=== PATIENT | female | born 1970 | race Two or more races ===

== ENCOUNTER 2019-01-07 18:39 | Emergency (ER) | payer SELFPAY ==
[~2019-01-07] VITALS: Ht 157.5 cm; Wt 57.6 kg
[~2019-01-07 18:39] MED LIST: LEVO500T59 PO; METR500T PO
--- NOTE | 2019-01-07 20:52 | PHYS DOC ---
Past Medical History Past Medical History: Hypertension Past Surgical History: Appendectomy Alcohol Use: None Drug Use: None Adult General Chief Complaint Chief Complaint: ABDOMINAL PAIN HPI HPI Patient is a 48 year old female presents with abdominal pain accompanied by nausea is ongoing intermittently for month. The patient is gotten worse last week. The patient denies any vomiting, denies any diarrhea. Denies any vaginal discharge, denies any vaginal bleeding. She was on a fever last Monday, and has been having intermittent chills. Rates her pain as 10/10 and sharp, no medications prior to arrival for pain. Review of Systems Review of Systems Constitutional: Reports fever or chills [] Eyes: Denies change in visual acuity, redness, or eye pain [] HENT: Denies nasal congestion or sore throat [] Respiratory: Denies cough or shortness of breath [] Cardiovascular: No additional information not addressed in HPI [] GI: Reports abdominal pain, nausea, Denies vomiting, bloody stools or diarrhea [] : Denies dysuria or hematuria [] Musculoskeletal: Denies back pain or joint pain [] Integument: Denies rash or skin lesions [] Neurologic: Denies headache, focal weakness or sensory changes [] Endocrine: Denies polyuria or polydipsia [] Complete systems were reviewed and found to be within normal limits, except as documented in this note. Current Medications Current Medications Current Medications Medications (Trade) Dose Ordered Sig/Mounika Start Time Stop Time Status Last Admin Dose Admin Info (CONTRAST GIVEN -- Rx MONITORING) 1 each PRN DAILY PRN 01/07/19 21:15 01/09/19 21:14 Iohexol (Omnipaque 240 Mg/ml) 30 ml 1X ONCE 01/07/19 21:30 01/07/19 21:31 DC 01/07/19 22:25 30 ML Iohexol (Omnipaque 300 Mg/ml) 75 ml 1X ONCE 01/07/19 21:30 01/07/19 21:31 DC 01/07/19 22:25 75 ML Morphine Sulfate (Morphine Sulfate) 4 mg 1X ONCE 01/07/19 21:00 01/07/19 21:01 DC 01/07/19 21:12 4 MG Ondansetron HCl (Zofran) 4 mg 1X ONCE 01/07/19 21:00 01/07/19 21:01 DC 01/07/19 21:12 4 MG Sodium Chloride 1,000 ml @ 1,000 mls/hr 1X ONCE 01/07/19 21:00 01/07/19 21:59 DC 01/07/19 21:12 1,000 MLS/HR Allergies Allergies Allergies Coded Allergies Type Severity Reaction Last Updated Verified No Known Drug Allergies 11/06/15 No Physical Exam Physical Exam Constitutional: Well developed, well nourished, no acute distress, non-toxic appearance. [] HENT: Normocephalic, atraumatic, bilateral external ears normal, oropharynx moist, no oral exudates, nose normal. [] Eyes: PERRLA, EOMI, conjunctiva normal, no discharge. [] Neck: Normal range of motion, no tenderness, supple, no stridor. [] Cardiovascular:Heart rate regular rhythm, no murmur [] Lungs & Thorax: Bilateral breath sounds clear to auscultation [] Abdomen: Bowel sounds normal, soft, periumbilical tenderness, no masses, no pulsatile masses. [] Skin: Warm, dry, no erythema, no rash. [] Back: No tenderness, no CVA tenderness. [] Extremities: No tenderness, no cyanosis, no clubbing, ROM intact, no edema. [] Neurologic: Alert and oriented X 3, normal motor function, normal sensory function, no focal deficits noted. [] Psychologic: Affect normal, judgement normal, mood normal. [] Current Patient Data Vital Signs Vital Signs Date Time Temp Pulse Resp B/P (MAP) Pulse Ox O2 Delivery O2 Flow Rate FiO2 01/07/19 21:21 74 20 145/90 (108) 99 Room Air 01/07/19 19:39 98.1 98.1 Lab Values Laboratory Tests Test 01/07/19 19:40 01/07/19 20:30 Urine Collection Type Void Urine Color Yellow Urine Clarity Clear Urine pH 6.0 Urine Specific [place] 1.025 Urine Protein Negative mg/dL (NEG-TRACE) Urine Glucose (UA) Negative mg/dL (NEG) Urine Ketones (Stick) Negative mg/dL (NEG) Urine Blood Trace (NEG) Urine Nitrite Negative (NEG) Urine Bilirubin Negative (NEG) Urine Urobilinogen Dipstick 0.2 mg/dL (0.2 mg/dL) Urine Leukocyte Esterase Negative (NEG) Urine RBC 1-2 /HPF (0-2) Urine WBC Occ /HPF (0-4) Urine Squamous Epithelial Cells Many /LPF Urine Bacteria Moderate /HPF (0-FEW) Urine Mucus Marked /LPF Urine Test Negative (NEG) White Blood Count 10.2 x10^3/uL (4.0-11.0) Red Blood Count 4.11 x10^6/uL (3.50-5.40) Hemoglobin 13.7 g/dL (12.0-15.5) Hematocrit 39.9 % (36.0-47.0) Mean Corpuscular Volume 97 fL (79-100) Mean Corpuscular Hemoglobin 33 pg (25-35) Mean Corpuscular Hemoglobin Concent 34 g/dL (31-37) Red Cell Distribution Width 13.1 % (11.5-14.5) Platelet Count 267 x10^3/uL (140-400) Neutrophils (%) (Auto) 71 % (31-73) Lymphocytes (%) (Auto) 19 % (24-48) L Monocytes (%) (Auto) 5 % (0-9) Eosinophils (%) (Auto) 5 % (0-3) H Basophils (%) (Auto) 0 % (0-3) Neutrophils # (Auto) 7.2 x10^3/uL (1.8-7.7) Lymphocytes # (Auto) 2.0 x10^3/uL (1.0-4.8) Monocytes # (Auto) 0.5 x10^3/uL (0.0-1.1) Eosinophils # (Auto) 0.5 x10^3/uL (0.0-0.7) Basophils # (Auto) 0.0 x10^3/uL (0.0-0.2) Sodium Level 141 mmol/L (136-145) Potassium Level 3.8 mmol/L (3.5-5.1) Chloride Level 105 mmol/L (98-107) Carbon Dioxide Level 26 mmol/L (21-32) Anion Gap 10 (6-14) Blood Urea Nitrogen 20 mg/dL (7-20) Creatinine 0.9 mg/dL (0.6-1.0) Estimated GFR (Cockcroft-Gault) 67.4 BUN/Creatinine Ratio 22 (6-20) H Glucose Level 103 mg/dL (70-99) H Lactic Acid Level 0.8 mmol/L (0.4-2.0) Calcium Level 9.5 mg/dL (8.5-10.1) Total Bilirubin 0.3 mg/dL (0.2-1.0) Aspartate Amino Transferase (AST) 23 U/L (15-37) Alanine Aminotransferase (ALT) 46 U/L (14-59) Alkaline Phosphatase 90 U/L (46-116) Total Protein 8.6 g/dL (6.4-8.2) H Albumin 3.9 g/dL (3.4-5.0) Albumin/Globulin Ratio 0.8 (1.0-1.7) L Lipase 275 U/L (73-393) Laboratory Tests 01/07/19 20:30 Laboratory Tests 01/07/19 20:30 EKG EKG [] Radiology/Procedures Radiology/Procedures [][facility] [address] [place] [address] IMAGING REPORT Signed PATIENT: RENAN FLORESACCOUNT: [id number] : 1970 LOCATION: ER AGE: 48 SEX: F EXAM STATUS: REG ER ORD. PHYSICIAN: BONITA MONTOYA APRN REASON: abd pain; Omni 240, 30ml; Omni 300, 75ml PROCEDURE: CT ABD PELV W/ORAL&IV CONTRAST CT ABD PELV W/ORAL IV CONTRAST Indication: Abdominal pain Technique: Postcontrast CT imaging was performed of the abdomen pelvis, multiplanar reconstruction images submitted. Oral contrast was also given. One or more of the following individualized dose reduction techniques were utilized for this examination: 1. Automated exposure control 2. Adjustment of the mA and/or kV according to patient size 3. Use of iterative reconstruction technique. Comparison: November 06, 2015 Findings: There is no significant abnormality of the limited visualized lung bases. There is now mild free fluid about the liver. Both kidneys enhance without hydronephrosis. No focal abnormality is identified of the pancreas or spleen. There are some accessory spleens. Gallbladder is present without obvious intraluminal abnormality by CT. There is no free air. There is long segment severe wall thickening of small bowel in the left abdomen and more central pelvis, adjacent mild nonorganized fluid density as well as hazy and strandy change of the fat. There is scattered mild to moderate colonic diverticulosis. There is mild free fluid in the paracolic gutters bilaterally. There is some gas distention of rectum. No free air is identified. Reportedly there has been appendectomy. There is very minimal grade 1 anterior spondylolisthesis at L5-S1. Disc osteophyte complex contributes to [id number] narrowing of the left L5-S1 neural foramen. There is inferior lumbar facet degenerative change. IMPRESSION: 1. There is long segment severe small bowel wall thickening in the left abdomen and more central pelvic region, evidence of enteritis. There is mild free fluid in the abdomen and pelvis. 2. There is colonic diverticulosis. Electronically signed by: Dominic Jacob MD (01/07/2019 10:39 PM) [facility] Course & Med Decision Making Course & Med Decision Making Pertinent Labs and Imaging studies reviewed. (See chart for details) Will get labs, and CT. Will also give supportive care. Labs are unremarkable. CT shows Enteritis. Will have patient follow up with GI and PCP. Dragon Disclaimer Dragon Disclaimer This electronic medical record was generated, in whole or in part, using a voice recognition dictation system. Departure Departure Impression: Primary Impression: Enteritis Additional Impression: Abdominal pain Disposition: 01 HOME, SELF-CARE Condition: STABLE Referrals: NO PCP (PCP) FAISAL LEMOS MD Patient Instructions: Abdominal Pain Additional Instructions: Thank you for visiting [facility]. We appreciate you trusting us with your care. If any additional problems come up don't hesitate to return to visit us. Please follow up with your primary care provider so they can plan additional care if needed and know about the problem that you had. If symptoms worsen come back to the Emergency Department. Any concerning symptoms that start such as chest pain, shortness of air, weakness or numbness on one side of the body, running high fevers or any other concerning symptoms return to the ER. Please follow up with GI and your primary care doctor. Please fill your medications at any pharmacy and follow the prescription instructions. Scripts Ondansetron (ONDANSETRON ODT) 4 Mg Tab.rapdis 1 TAB PO PRN Q6-8HRS PRN for NAUSEA, #16 TAB Prov: BONITA MONTOYA APRN 01/07/19 Problem Qualifiers Additional Impression: Abdominal pain Abdominal location: periumbilical Qualified Codes: R10.33 - Periumbilical pain BONITA MONTOYA APRN Jan 07, 2019 20:52
[2019-01-07 20:53] LABS: BASO % 0 % (0-3); EOS # 0.5 x10^3/uL (0.0-0.7); EOS % 5 % (0-3); HEMATOCRIT 39.9 % (36.0-47.0); HEMOGLOBIN 13.7 g/dL (12.0-15.5); LYMPH % 19 % (24-48); MEAN CORPUSCULAR HEMOGLOBIN 33 pg (25-35); MEAN CORPUSCULAR HGB CONC 34 g/dL (31-37); MEAN CORPUSCULAR VOLUME 97 fL (79-100); MONO # 0.5 x10^3/uL (0.0-1.1); MONO % 5 % (0-9); NEUT # 7.2 x10^3/uL (1.8-7.7); NEUT % 71 % (31-73); PLATELET COUNT 267 x10^3/uL (140-400); RED BLOOD COUNT 4.11 x10^6/uL (3.50-5.40); RED CELL DISTRIBUTION WIDTH 13.1 % (11.5-14.5); WHITE BLOOD COUNT 10.2 x10^3/uL (4.0-11.0)
[2019-01-07 20:55] LABS: BILIRUBIN,URINE NEGATIVE (NEG); CLARITY,URINE CLEAR; COLOR,URINE YELLOW; NITRITE,URINE NEGATIVE (NEG); PROTEIN,URINE NEGATIVE (NEG-TRACE); UROBILINOGEN,URINE 0.2 mg/dL (0.2 mg/dL)
[2019-01-07] MEDS ORDERED: ONDANSETRON PF 4 MG/2 ML VIAL. IV ONE (21:00)
[2019-01-07] MEDS ORDERED: IV NORMAL SALINE 1000ML BAG 1,000 ML IV ONE (21:00)
[2019-01-07] MEDS ORDERED: MORPHINE SULFATE 4 MG/ML VIAL. IV ONE (21:00)
[2019-01-07 21:01] LABS: CALCIUM 9.5 mg/dL (8.5-10.1); CREATININE 0.9 mg/dL (0.6-1.0); GFR 67.4; POTASSIUM 3.8 mmol/L (3.5-5.1)
[2019-01-07 21:03] LABS: BACTERIA,URINE MODERATE /HPF (0-FEW); SQUAMOUS EPITHELIAL CELL,UR MANY /LPF; WBC,URINE OCC /HPF (0-4)
[2019-01-07 21:07] LABS: ALBUMIN 3.9 g/dL (3.4-5.0); ALBUMIN/GLOBULIN RATIO 0.8 (1.0-1.7); TOTAL BILIRUBIN 0.3 mg/dL (0.2-1.0); TOTAL PROTEIN 8.6 g/dL (6.4-8.2)
[2019-01-07] MEDS ORDERED: CONTRAST GIVEN. MC PRN (21:15)
[2019-01-07 21:18] LABS: U PREG PATIENT NEGATIVE (NEG)
[2019-01-07] MEDS ORDERED: IOHEXOL 240 MG/ML 50ML VIAL. PO ONE (21:30)
[2019-01-07] MEDS ORDERED: IOHEXOL 300 MG/ML 100ML VIAL. IV ONE (21:30)
--- NOTE | 2019-01-07 22:42 | RAD ---
CT ABD PELV W/ORAL IV CONTRAST Indication: Abdominal pain Technique: Postcontrast CT imaging was performed of the abdomen pelvis, multiplanar reconstruction images submitted. Oral contrast was also given. One or more of the following individualized dose reduction techniques were utilized for this examination: 1. Automated exposure control 2. Adjustment of the mA and/or kV according to patient size 3. Use of iterative reconstruction technique. Comparison: November 06, 2015 Findings: There is no significant abnormality of the limited visualized lung bases. There is now mild free fluid about the liver. Both kidneys enhance without hydronephrosis. No focal abnormality is identified of the pancreas or spleen. There are some accessory spleens. Gallbladder is present without obvious intraluminal abnormality by CT. There is no free air. There is long segment severe wall thickening of small bowel in the left abdomen and more central pelvis, adjacent mild nonorganized fluid density as well as hazy and strandy change of the fat. There is scattered mild to moderate colonic diverticulosis. There is mild free fluid in the paracolic gutters bilaterally. There is some gas distention of rectum. No free air is identified. Reportedly there has been appendectomy. There is very minimal grade 1 anterior spondylolisthesis at L5-S1. Disc osteophyte complex contributes to [id number] narrowing of the left L5-S1 neural foramen. There is inferior lumbar facet degenerative change. IMPRESSION: 1. There is long segment severe small bowel wall thickening in the left abdomen and more central pelvic region, evidence of enteritis. There is mild free fluid in the abdomen and pelvis. 2. There is colonic diverticulosis. Electronically signed by: Dominic Jacob MD (01/07/2019 10:39 PM) [facility]
[2019-01-07 22:58] VITALS: BP 119/81
[2019-01-07] MEDS ORDERED: ONDA4TAB12 PO (23:07)
== END 2019-01-07 23:49 | disposition home or self-care (01) ==
LOC: ER 18:39
DX: K52.9 Noninfective gastroenteritis and colitis, unspecified (principal); K57.90 Diverticulosis of intestine, part unspecified, without perforation or abscess without bleeding; I10 Essential (primary) hypertension; Z90.89 Acquired absence of other organs
CPT/HCPCS: 36415; 74177; 80053; 81001; 81025; 83605; 83690; 85025; 87086; 96361; 96374; 96375; 99285; J2270; J2405; J7030; Q9966; Q9967